=== PATIENT | female | born 1975 | race Caucasian/White ===

== ENCOUNTER 2016-08-15 11:23 | Outpatient (CLI) | payer OTHER | END 2016-08-15 11:24 | disposition home or self-care (01) | DX: E03.9 Hypothyroidism, unspecified (principal); D64.9 Anemia, unspecified ==

== ENCOUNTER 2017-04-21 20:35 | Outpatient (CLI) | payer OTHER ==
[2017-04-21 21:03] LABS: BASOPHILS % (AUTO) 0.5 %; EOSINOPHILS # (AUTO) 0.1 10^3/uL (0.0-0.7); HGB - HEMOGLOBIN 12.3 g/dL (12.0-16.0); LYMPHOCYTES # (AUTO) 2.2 10^3/uL (1.5-3.5); LYMPHOCYTES % (AUTO) 35.8 %; MEAN CORPUSCULAR HEMOGLOBIN 29.5 pg (27.0-31.0); MEAN CORPUSCULAR HGB CONC 33.1 g/dL (32.0-36.0); MEAN CORPUSCULAR VOLUME 89.3 fL (81.0-99.0); MEAN PLATELET VOLUME 9.6 fL (7.9-10.8); MONOCYTES # (AUTO) 0.7 10^3/uL (0.0-1.0); MONOCYTES % (AUTO) 10.5 %; NEUTROPHILS # (AUTO) 3.3 10^3/uL (1.5-6.6); NEUTROPHILS % (AUTO) 52.2 %; PLT - PLATELET COUNT 174 10^3/uL (130-450); RED BLOOD COUNT 4.15 10^6/uL (4.20-5.40); RED CELL DISTRIBUTION WIDTH 12.9 % (12.0-15.0); WHITE BLOOD COUNT 6.3 x10^3/uL (4.8-10.8)
[2017-04-21 21:11] LABS: CREATININE 0.6 mg/dL (0.4-1.0)
[2017-04-21 21:18] LABS: BILIRUBIN,URINE NEGATIVE (NEGATIVE); GLUCOSE, URINE (UA) NEGATIVE (NEGATIVE); KETONES,URINE (UA) NEGATIVE (NEGATIVE); LEUKOCYTE ESTERASE, URINE NEGATIVE (NEGATIVE); NITRITE,URINE NEGATIVE (NEGATIVE); OCCULT BLOOD,URINE NEGATIVE (NEGATIVE); PROTEIN,URINE NEGATIVE (NEGATIVE); UROBILINOGEN,URINE 0.2 (NORMAL) E.U./dL (NORMAL)
[2017-04-21 21:20] LABS: PLATELET ESTIMATE, MANUAL NORMAL (130-450,000) (NORMAL); PLATELET MORPHOLOGY RARE GIANT PLATELETS (NORMAL); RBC MORPHOLOGY (MULTIPLE) NORMAL APPEARANCE (NORMAL)
[2017-04-21 21:37] LABS: CLARITY,URINE CLEAR (CLEAR)
== END 2017-04-21 20:36 | disposition home or self-care (01) ==
LOC: LAB 20:35
PROVIDERS: ATTEND Physician Assistant
DX: R10.9 Unspecified abdominal pain (principal)
CPT/HCPCS: 80048; 81001; 81003; 82150; 83690; 85025; 87086

== ENCOUNTER 2017-04-23 10:44 | Outpatient (CLI) | payer OTHER ==
[2017-04-23] MEDS ORDERED: IOPAMIDOL-300 50 ML VIAL ONE (11:03)
[2017-04-23] MEDS ORDERED: IOPAMIDOL-300 100 ML VIAL ONE (11:03)
[2017-04-23] MEDS ORDERED: IOPAMIDOL-300 100 ML VIAL IVP ONE (12:22)
[2017-04-23] MEDS ORDERED: IOPAMIDOL-300 50 ML VIAL PO ONE (12:22)
--- NOTE | 2017-04-23 19:32 | CT Report ---
DATE OF SERVICE: 04/23/2017 CT ABDOMEN AND PELVIS WITH CONTRAST: 04/23/2017 CLINICAL INDICATION: Left lower quadrant pain. COMPARISON: Previous abdomen and pelvis CT 01/02/2015, previous chest CT 01/10/2015. Axial CT images of the abdomen and pelvis were obtained with 100 mL Isovue 300 intravenously as well as oral contrast. In accordance with CT protocol optimization, one or more of the following dose reduction techniques were utilized for this exam: Automated exposure control, adjustment of mA and/or KV based on patient size, or use of iterative reconstructive technique. Limited evaluation of the lung bases demonstrates a stable 3 mm nodule in the posterior right lower lobe. ABDOMEN: The liver, spleen, pancreas, kidneys and adrenal glands are unremarkable. The gallbladder is not dilated. No bowel dilatation, free gas or free fluid is present. No abdominal adenopathy is seen. PELVIS: The pelvic organs appear unremarkable. No pelvic adenopathy or free fluid is present. The appendix is seen in the right lower quadrant, and is normal in caliber. Osseous structures demonstrate mild degenerative changes. IMPRESSION: Normal CT of the abdomen and pelvis with contrast. No evident etiology for patient's left lower quadrant pain. TD: 04/23/2017 20:32
== END 2017-04-23 10:45 | disposition home or self-care (01) ==
LOC: DI 10:44
PROVIDERS: ATTEND Physician Assistant
DX: R10.32 Left lower quadrant pain (principal)
CPT/HCPCS: 74177; Q9967

== ENCOUNTER 2017-06-27 09:29 | Emergency (ER) | payer OTHER ==
[2017-06-27] MEDS ORDERED: ONDANSETRON 4 MG/2 ML VIAL IVP STA (11:43)
[2017-06-27] MEDS ORDERED: MORPHINE 2 MG/ML CARPUJECT IVP STA ×2 (11:43→13:14)
--- NOTE | 2017-06-27 11:47 | ED Physician Documentation ---
History of Present Illness - Stated complaint Stated Complaint: AD PX/CONSTIPATION/POST OP 2 DAYS - Chief complaint Chief Complaint: General - Additonal information Additional information: hx from pt 41 female 2 days s/p rectocele surgery at [facility] on dulcolax but severe rectal pain and now BM no fever s/p hyst Review of Systems Constitutional: denies: Fever Cardiac: denies: Chest pain / pressure Respiratory: denies: Dyspnea GI: reports: Other (rectal paon). 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 - Present Medications Home Medications: Ambulatory Orders Medication Instructions Recorded Confirmed Thyroid,Pork [[place] Thyroid] 105 mcg PO DAILY 01/02/15 01/10/15 - Allergies Allergies/Adverse Reactions: Allergies Allergy/AdvReac Type Severity Reaction Status Date / Time codeine AdvReac Unknown Verified 01/02/15 11:40 - Social History Does the pt smoke?: No Smoking Status: Never smoker Does the pt drink ETOH?: No Does the pt have substance abuse?: No - Immunizations Immunizations are current?: Yes PD ED PE NORMAL - Vitals Vital signs reviewed: Yes - Neck Neck: Supple, no meningeal sign - Cardiac Cardiac: RRR - Respiratory Respiratory: No respiratory distress, Clear bilaterally - Abdomen Abdomen: Soft, Non tender - Rectal Rectal: Other (STS anterior rectal vault is very tender) - Derm Derm: Normal color - Neuro Neuro: Alert and oriented X 3 Results - Vitals Vitals: Vital Signs - 24 hr 06/27/17 06/27/17 06/27/17 10:17 10:51 13:22 Temperature 36.9 C Heart Rate 67 69 77 Respiratory 17 16 18 Rate Blood Pressure 110/77 94/61 91/59 L O2 Saturation 100 100 100 06/27/17 06/27/17 06/27/17 13:23 14:39 16:37 Temperature 37.2 C Heart Rate 79 84 72 Respiratory 16 17 17 Rate Blood Pressure 105/66 94/68 96/60 O2 Saturation 100 100 97 06/27/17 19:24 Temperature 36.7 C Heart Rate 71 Respiratory 12 Rate Blood Pressure 102/58 L O2 Saturation 99 Oxygen O2 Source Room air - Labs Labs: Laboratory Tests 06/27/17 06/27/17 14:21 14:21 WBC 9.2 RBC 3.85 L Hgb 11.7 L Hct 34.6 L MCV 89.8 MCH 30.4 MCHC 33.8 RDW 14.1 Plt Count 158 MPV 8.8 Neut # 6.0 Lymph # 2.4 [place] # 0.6 Eos # 0.1 Baso # 0.1 Absolute Nucleated RBC 0.01 Nucleated RBC % 0.1 Sodium 134 L Potassium 3.8 Chloride 104 Carbon Dioxide 23 Anion Gap 7.0 BUN 11 Creatinine 0.8 Estimated GFR (MDRD) 79 L Glucose 86 Calcium 8.3 L - Rads (name of study) CT AP with IV con Radiology: See rad report (5 X 8 cm fluid and gas collection separate from rectum could be abscess hematoma or seroma, consider surgical consult or fluoro or IR, restained stool) PD MEDICAL DECISION MAKING - ED course ED course: long ER stay -CT ordered at 1144 and not done and read until 1550 pt not getting relief with morphine will try dilaudid ofirmev toradol - good relief CT shows a 5 X 8 cm fluid and gals collection between rectal and vaginal vaults - ddx abscess seroma hematoma as pt has no fever will hold on ab until collection can be drained and cultured spoke to Dr Lyn surgeon division operations manager for Dr Rolanda Mares pts surgeon and he rec pt be transferred to [facility] for drainage pt is [place] so will call [place] to coordinate - [place] rep states pt is [employer] P[employer] and is covered to go to [place] spoke to charge nurse at [facility] who took report and accepts pt and states accepting doc is Dr Jeff Delgado and I later spoke to Dr Delgado as well pt and family updated COBRA forms complete Departure - Departure Disposition: 02 Transfer Acute Care Hosp Clinical Impression: Post-operative complication Qualifiers: Surgical complication system/body Area: genitourinary Surgical complication type: unspecified Procedure type: genitourinary Qualified Code(s): N99.89 - Other postprocedural complications and disorders of genitourinary system Condition: Good Discharge Date/Time: 06/27/17 19:24
[2017-06-27 14:25] LABS: BASOPHILS # (AUTO) 0.1 10^3/uL (0.0-0.1); BASOPHILS % (AUTO) 0.7 %; EOSINOPHILS # (AUTO) 0.1 10^3/uL (0.0-0.7); EOSINOPHILS % (AUTO) 0.6 %; HGB - HEMOGLOBIN 11.7 g/dL (12.0-16.0); LYMPHOCYTES # (AUTO) 2.4 10^3/uL (1.5-3.5); MEAN CORPUSCULAR HEMOGLOBIN 30.4 pg (27.0-31.0); MEAN CORPUSCULAR HGB CONC 33.8 g/dL (32.0-36.0); MEAN CORPUSCULAR VOLUME 89.8 fL (81.0-99.0); MEAN PLATELET VOLUME 8.8 fL (7.9-10.8); MONOCYTES # (AUTO) 0.6 10^3/uL (0.0-1.0); MONOCYTES % (AUTO) 6.9 %; NEUTROPHILS % (AUTO) 65.8 %; PLT - PLATELET COUNT 158 10^3/uL (130-450); RED BLOOD COUNT 3.85 10^6/uL (4.20-5.40); RED CELL DISTRIBUTION WIDTH 14.1 % (12.0-15.0); WHITE BLOOD COUNT 9.2 x10^3/uL (4.8-10.8)
[2017-06-27 14:33] LABS: CALCIUM 8.3 mg/dL (8.5-10.3); CREATININE 0.8 mg/dL (0.4-1.0)
[2017-06-27] MEDS ORDERED: IOPAMIDOL-300 100 ML VIAL ONE (14:42)
[2017-06-27] MEDS ORDERED: IOPAMIDOL-300 100 ML VIAL IVP ONE (15:15)
[2017-06-27] MEDS ORDERED: HYDROmorphone 1 MG/ML SYRINGE IVP STA ×2 (15:50→18:53)
[2017-06-27] MEDS ORDERED: KETOROLAC 30 MG/ML VIAL IVP STA (15:50)
[2017-06-27] MEDS ORDERED: ACETAMINOPHEN 1,000 MG/100 ML 100 ML IV STA (15:50)
--- NOTE | 2017-06-27 15:52 | CT Preliminary Report ---
Exam: CT ABDOMEN/PELVIS W/ IMPRESSION: 1. Fluid and gas collection in the cul-de-sac appears separate from the rectum, though difficult to d etermine if completely separate from the vagina. This may represent hematoma, abscess or postoperativ e seroma. Surgical consultation may be useful. Fluoroscopic exam could be considered to assess for co mmunication with either the rectum or vagina. 2. Findings suggestive of constipation. Findings discussed with Dr. Crowley by Dr. Mcneil on 06/27/2017 at 3:40 PM. [facility] SITE ID: [id number]
--- NOTE | 2017-06-27 16:09 | CT Report ---
EXAM: CT ABDOMEN AND PELVIS EXAM DATE: 06/27/2017 03:01 PM. CLINICAL HISTORY: Status post rectocele surgery, no bowel movement, STS rectal vault digital rectal e xam. COMPARISONS: CT of the abdomen and pelvis with contrast 01/02/2015. TECHNIQUE: Routine helical CT imaging was performed through the abdomen and pelvis. IV contrast: Isov ue-300, 100 mL. Enteric contrast: No. Reconstructions: Coronal and sagittal. In accordance with CT protocol optimization, one or more of the following dose reduction techniques w ere utilized for this exam: automated exposure control, adjustment of mA and/or KV based on patient s ize, or use of iterative reconstructive technique. FINDINGS: Lung Bases: Unremarkable. Liver: Normal. No masses. Gallbladder/Bile Ducts: Moderate gallbladder distention without calculi or evidence of acute cholecys titis. The extrahepatic bile duct is normal with minimal intrahepatic biliary ductal prominence centr ally. Appearance is similar to the 2014 exam. Spleen: Normal. Pancreas: Normal. Adrenal Glands: Normal. Kidneys: Normal. No masses or hydronephrosis. Peritoneal Cavity/Bowel: -Patient is post recent rectocele surgery with evidence of recent surgery in the low pelvis. Anterior to the low rectum in the cul-de-sac there is a lobulated gas and fluid collection measuring 52 mm CC by 34 mm transverse by 17 mm AP (369 and 6/36). No definite evidence of communication with the rect um, though no clear fat plane between this region and the vagina, though this would be better evaluat ed with a fluoroscopic exam after the administration of contrast. Mild edema and soft tissue strandin g about the rectum is nonspecific in the setting of recent surgery. The remainder of the colon is unremarkable with the exception of above average stool burden suggestin g constipation. The stomach and small bowel are within normal limits for technique. Normal appendix. No abnormally enlarged lymph nodes. Pelvic Organs: Post recent rectal surgery as above. The uterus is absent. The urinary bladder is unre markable. No definite communication of the described gas and fluid collection with the vaginal canal. Mild stranding and free fluid in the low pelvis likely related to recent surgery as above. No adnexa l mass. Vasculature: No aneurysms or other significant abnormality. Bones: No significant abnormality. Other: None. IMPRESSION: 1. Fluid and gas collection in the cul-de-sac appears separate from the rectum, though difficult to d etermine if completely separate from the vagina. This may represent a hematoma, abscess or postoperat willie seroma. Surgical consultation may be useful. Fluoroscopic exam could be considered to assess for communication with either the rectum or vagina. 2. Findings suggestive of constipation. Findings discussed with Dr. Han by Dr. Mcneil on 06/27/2017 at 3:40 PM. [facility] Referring Provider Line: [phone] SITE ID: [id number]
[2017-06-27 19:25] VITALS: BP 102/58
== END 2017-06-27 19:24 | disposition short-term general hospital (02) ==
LOC: ED 09:29
DX: N99.89 Other postprocedural complications and disorders of genitourinary system (principal); K62.89 Other specified diseases of anus and rectum; E03.9 Hypothyroidism, unspecified
CPT/HCPCS: 36415; 74177; 80048; 85025; 96365; 96375; 96376; 99284; J0131; J1170; Q9967

== ENCOUNTER 2017-06-27 19:31 | Outpatient (CLI) | payer OTHER | END 2017-06-27 19:32 | disposition short-term general hospital (02) | LOC: EMS 19:31 | PROVIDERS: ATTEND Surgery | DX: T81.9XXA Unspecified complication of procedure, initial encounter (principal) | CPT/HCPCS: A0425; A0426 ==

== ENCOUNTER 2017-07-09 10:52 | Outpatient (CLI) | payer OTHER ==
[2017-07-09 18:03] LABS: THYROID STIMULATING HORMONE < 0.08 uIU/mL (0.34-5.60)
[2017-07-09 18:07] LABS: FREE T4 (FREE THYROXINE) 0.97 ng/dL (0.58-1.64)
[2017-07-09 18:11] LABS: TOTAL T3 1.78 ng/mL (0.87-1.78)
== END 2017-07-09 10:53 | disposition home or self-care (01) ==
LOC: LAB.F 10:52
PROVIDERS: ATTEND Physician Assistant
DX: E03.9 Hypothyroidism, unspecified (principal)
CPT/HCPCS: 36415; 84439; 84443; 84480; 84481; 84482

== ENCOUNTER 2017-10-05 15:06 | Outpatient (CLI) | payer OTHER ==
[2017-10-05 17:41] LABS: BASOPHILS % (AUTO) 0.5 %; EOSINOPHILS % (AUTO) 0.5 %; HGB - HEMOGLOBIN 13.8 g/dL (12.0-16.0); LYMPHOCYTES # (AUTO) 1.6 10^3/uL (1.5-3.5); MEAN CORPUSCULAR HEMOGLOBIN 30.3 pg (27.0-31.0); MEAN CORPUSCULAR HGB CONC 33.6 g/dL (32.0-36.0); MEAN CORPUSCULAR VOLUME 90.3 fL (81.0-99.0); MEAN PLATELET VOLUME 10.3 fL (7.9-10.8); MONOCYTES # (AUTO) 0.5 10^3/uL (0.0-1.0); MONOCYTES % (AUTO) 7.4 %; NEUTROPHILS % (AUTO) 69.6 %; PLT - PLATELET COUNT 191 10^3/uL (130-450); RED BLOOD COUNT 4.54 10^6/uL (4.20-5.40); RED CELL DISTRIBUTION WIDTH 13.5 % (12.0-15.0); WHITE BLOOD COUNT 7.2 x10^3/uL (4.8-10.8)
[2017-10-05 17:45] LABS: BILIRUBIN,URINE NEGATIVE (NEGATIVE); GLUCOSE, URINE (UA) NEGATIVE (NEGATIVE); KETONES,URINE (UA) 40 mg/dL (NEGATIVE); LEUKOCYTE ESTERASE, URINE NEGATIVE (NEGATIVE); NITRITE,URINE NEGATIVE (NEGATIVE); OCCULT BLOOD,URINE NEGATIVE (NEGATIVE); PH,URINE 7.5 PH (5.0-7.5); PROTEIN,URINE NEGATIVE (NEGATIVE); UROBILINOGEN,URINE 0.2 (NORMAL) E.U./dL (NORMAL)
[2017-10-05 17:47] LABS: CLARITY,URINE CLEAR (CLEAR)
[2017-10-05 17:48] LABS: ALBUMIN 4.2 g/dL (3.2-5.5); ALBUMIN/GLOBULIN RATIO 1.3 (1.0-2.2); BILIRUBIN,TOTAL 0.8 mg/dL (0.2-1.0); CALCIUM 9.6 mg/dL (8.5-10.3); CREATININE 0.7 mg/dL (0.4-1.0); TOTAL PROTEIN 7.5 g/dL (6.7-8.2)
== END 2017-10-05 15:07 | disposition home or self-care (01) ==
LOC: LAB.F 15:06
PROVIDERS: ATTEND Physician Assistant
DX: M54.5 Low back pain (principal)
CPT/HCPCS: 36415; 80053; 81001; 81003; 85025; 87086

== ENCOUNTER 2018-05-28 14:41 | Outpatient (CLI) | payer OTHER | END 2018-05-28 14:42 | disposition EMS.NT | LOC: EMS 14:41 | PROVIDERS: ATTEND Surgery | DX: R55 Syncope and collapse (principal) ==

== ENCOUNTER 2018-06-05 12:50 | Outpatient (CLI) | payer OTHER | END 2018-06-05 12:51 | disposition short-term general hospital (02) | LOC: EMS 12:50 | PROVIDERS: ATTEND Surgery | DX: R07.9 Chest pain, unspecified (principal) | CPT/HCPCS: A0425; A0427 ==

== ENCOUNTER 2018-11-09 11:11 | Outpatient (CLI) | payer OTHER ==
--- NOTE | 2018-11-09 15:37 | Mammography Report ---
Reason: SCREENING MAMMO Procedure Date: 11/09/2018 Accession Number: [id number] / [id number] Procedure: MGS - Screening Mammo Dig Bilat CPT Code: FULL RESULT: EXAM: Screening Mammo Dig Bilat DATE: 11/09/2018 11:33 AM CLINICAL HISTORY: Screening exam. Baseline examination. TECHNIQUE: (B) - Bilateral CC and MLO views were obtained. COMPARISON: None PARENCHYMAL PATTERN: (D) - The breast(s) demonstrate(s) heterogeneously dense fibroglandular parenchyma. FINDINGS: There are no suspicious masses, calcifications, or areas of distortion. IMPRESSION: Negative examination. BI-RADS category 1. RECOMMENDATION: (ANNUAL) - Recommend routine annual screening mammography. BI-RADS CATEGORY: (1) - Negative. STANDARD QUALIFYING STATEMENTS: 1. This examination was reviewed with the aid of Computer-Aided Detection (CAD). 2. A negative or benign imaging report should not preclude biopsy if clinically suspicious findings are present. 3. Dense breasts may obscure an underlying neoplasm. 4. This examination was reviewed without the aid of 3D breast imaging (tomosynthesis).
== END 2018-11-09 11:12 | disposition home or self-care (01) ==
LOC: DI.S 11:11
DX: Z12.31 Encounter for screening mammogram for malignant neoplasm of breast (principal)
CPT/HCPCS: 77067

== ENCOUNTER 2018-11-22 15:16 | Outpatient (CLI) | payer OTHER | END 2018-11-22 15:17 | disposition EMS.NT | LOC: EMS 15:16 | PROVIDERS: ATTEND Surgery | DX: R42 Dizziness and giddiness (principal); R00.0 Tachycardia, unspecified; R07.9 Chest pain, unspecified ==

== ENCOUNTER 2018-11-22 16:26 | Emergency (ER) | payer OTHER ==
[2018-11-22 17:12] LABS: BILIRUBIN,URINE NEGATIVE (NEGATIVE); GLUCOSE, URINE (UA) NEGATIVE (NEGATIVE); KETONES,URINE (UA) NEGATIVE (NEGATIVE); LEUKOCYTE ESTERASE, URINE NEGATIVE (NEGATIVE); NITRITE,URINE NEGATIVE (NEGATIVE); OCCULT BLOOD,URINE NEGATIVE (NEGATIVE); PH,URINE 6.5 PH (5.0-7.5); PROTEIN,URINE NEGATIVE (NEGATIVE); UROBILINOGEN,URINE 0.2 (NORMAL) E.U./dL (NORMAL)
[2018-11-22 17:13] LABS: CLARITY,URINE CLEAR (CLEAR)
--- NOTE | 2018-11-22 17:18 | ED Physician Documentation ---
History of Present Illness - Stated complaint Stated Complaint: CP - Chief complaint Chief Complaint: Cardiac - History obtained from History obtained from: Patient - History of Present Illness Timing: Prior to arrival - Additonal information Additional information: Patient is a 42-year-old female presenting with chest discomfort, lightheadedness, and anxiety that occurred just prior to arrival. Patient reports that she has had chest pain for the past several months and has had repeat evaluations including at [facility] and been told she has anxiety and pa shelli as opposed to an underlying cardiac issue. Patient feels that she experiences hyperventilation, nausea without vomiting during these episodes. Patient has not exhibited her experience syncope. No other abdominal pain, urinary change, stool change, hormone use, prolonged travel, leg swelling or discomfort. Patient took Valium at home with near resolution of all symptoms. No other improving or worsening factors noted. Review of Systems Constitutional: denies: Fever Cardiac: reports: Chest pain / pressure. denies: Pedal edema Respiratory: reports: Dyspnea. denies: Cough GI: reports: Nausea. denies: Abdominal Pain, Vomiting, Diarrhea : denies: Dysuria Neurologic: reports: Near syncope. 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 - Present Medications Home Medications: Ambulatory Orders Medication Instructions Recorded Confirmed Thyroid,Pork [[place] Thyroid] 105 mcg PO DAILY 01/02/15 01/10/15 - Allergies Allergies/Adverse Reactions: Allergies Allergy/AdvReac Type Severity Reaction Status Date / Time codeine AdvReac Unknown Verified 11/22/18 16:40 - Social History Does the pt smoke?: No Smoking Status: Never smoker Does the pt drink ETOH?: No Does the pt have substance abuse?: No - Immunizations Immunizations are current?: Yes PD ED PE NORMAL - Vitals Vital signs reviewed: Yes - General General: Alert and oriented X 3, No acute distress, Well developed/nourished - HEENT HEENT: Atraumatic, Moist mucous membranes - Neck Neck: Supple, no meningeal sign - Cardiac Cardiac: RRR, No murmur - Respiratory Respiratory: No respiratory distress, Clear bilaterally - Abdomen Abdomen: Soft, Non tender, Non distended - Derm Derm: Normal color, Warm and dry, No rash - Extremities Extremities: No deformity, No tenderness to palpate, No edema - Neuro Neuro: Alert and oriented X 3, No motor deficit, No sensory deficit - Psych Psych: Normal mood, Normal affect Results - Vitals Vitals: Vital Signs - 24 hr 11/22/18 16:34 Temperature 36.7 C Heart Rate 58 L Respiratory 18 Rate Blood Pressure 108/68 O2 Saturation 100 Oxygen O2 Source Room air - Labs Labs: Laboratory Tests 11/22/18 11/22/18 11/22/18 16:11 16:47 17:42 WBC 6.4 RBC 4.02 L Hgb 12.5 Hct 37.7 MCV 93.8 MCH 31.1 H MCHC 33.2 RDW 13.5 Plt Count 216 MPV 11.2 H Neut # (Auto) 4.2 Lymph # (Auto) 1.5 [place] # (Auto) 0.6 Eos # (Auto) 0.1 Baso # (Auto) 0.1 Absolute Nucleated RBC 0.00 Nucleated RBC % 0.0 Sodium Potassium Chloride Carbon Dioxide Anion Gap BUN Creatinine Estimated GFR (MDRD) Glucose Calcium Total Bilirubin AST ALT Alkaline Phosphatase Troponin I High Sens Total Protein Albumin Globulin Albumin/Globulin Ratio Lipase TSH Urine Color YELLOW Urine Clarity CLEAR Urine pH 6.5 Ur Specific [place] >=1.030 H <=1.005 Urine Protein NEGATIVE Urine Glucose (UA) NEGATIVE Urine Ketones NEGATIVE Urine Occult Blood NEGATIVE Urine Nitrite NEGATIVE Urine Bilirubin NEGATIVE Urine Urobilinogen 0.2 (NORMAL) Ur Leukocyte Esterase NEGATIVE Ur Microscopic Review NOT INDICATED Urine Culture Comments NOT INDICATED Urine HCG, Qual NEGATIVE 11/22/18 11/22/18 11/22/18 17:42 17:42 17:42 WBC RBC Hgb Hct MCV MCH MCHC RDW Plt Count MPV Neut # (Auto) Lymph # (Auto) [place] # (Auto) Eos # (Auto) Baso # (Auto) Absolute Nucleated RBC Nucleated RBC % Sodium 142 Potassium 3.8 Chloride 108 Carbon Dioxide 24 Anion Gap 10.0 BUN 9 Creatinine 0.8 Estimated GFR (MDRD) 78 L Glucose 99 Calcium 9.4 Total Bilirubin 0.5 AST 19 ALT 17 Alkaline Phosphatase 32 L Troponin I High Sens < 2.3 L Total Protein 6.9 Albumin 4.2 Globulin 2.7 Albumin/Globulin Ratio 1.6 Lipase 46 TSH < 0.08 L Urine Color Urine Clarity Urine pH Ur Specific [place] Urine Protein Urine Glucose (UA) Urine Ketones Urine Occult Blood Urine Nitrite Urine Bilirubin Urine Urobilinogen Ur Leukocyte Esterase Ur Microscopic Review Urine Culture Comments Urine HCG, Qual PD MEDICAL DECISION MAKING - ED course Complexity details: reviewed results, re-evaluated patient, considered differential, d/w patient, d/w family ED course: Patient presenting with likely panic and anxiety attack which she has been told about before during her previous evaluations and negative work-up for chest complaints. Do not have high suspicion for PE, pneumonia, ACS, HI, unstable angina, dissection, aneurysm, but considered. EKG and troponin within normal limits and did not reflect ischemia. Chest x-ray rather unremarkable. Screening lab work otherwise and concerning. Do not feel patient require medications at this time, as she is otherwise asymptomatic and this is related to anxiety. Discussed establishing primary care physician, anxiety mediation techniques, return precautions and follow-up. Patient voiced understanding and is comfortable with discharge plan. Departure - Departure Disposition: 01 Home, Self Care Clinical Impression: Anxiety Condition: Good Instructions: ED Panic Attack Follow-Up: your,doctor [Other] - Within 3 Days Comments: Recommend follow-up with primary care physician in next 2 to 3 days to discuss likely panic and anxiety component of your chest discomfort. Return to ED sooner if experience worsening symptoms or have other concerns.
[2018-11-22 17:52] LABS: BASOPHILS # (AUTO) 0.1 10^3/uL (0.0-0.1); BASOPHILS % (AUTO) 0.9 %; EOSINOPHILS # (AUTO) 0.1 10^3/uL (0.0-0.7); EOSINOPHILS % (AUTO) 1.3 %; HGB - HEMOGLOBIN 12.5 g/dL (12.0-16.0); LYMPHOCYTES # (AUTO) 1.5 10^3/uL (1.5-3.5); LYMPHOCYTES % (AUTO) 22.8 %; MEAN CORPUSCULAR HEMOGLOBIN 31.1 pg (27.0-31.0); MEAN CORPUSCULAR HGB CONC 33.2 g/dL (32.0-36.0); MEAN CORPUSCULAR VOLUME 93.8 fL (81.0-99.0); MEAN PLATELET VOLUME 11.2 fL (7.9-10.8); MONOCYTES # (AUTO) 0.6 10^3/uL (0.0-1.0); MONOCYTES % (AUTO) 8.6 %; NEUTROPHILS # (AUTO) 4.2 10^3/uL (1.5-6.6); NEUTROPHILS % (AUTO) 65.9 %; PLT - PLATELET COUNT 216 10^3/uL (130-450); RED BLOOD COUNT 4.02 10^6/uL (4.20-5.40); RED CELL DISTRIBUTION WIDTH 13.5 % (12.0-15.0); WHITE BLOOD COUNT 6.4 x10^3/uL (4.8-10.8)
[2018-11-22 17:52] LABS: HCG UR QUAL NEGATIVE
[2018-11-22 18:00] LABS: ALBUMIN 4.2 g/dL (3.2-5.5); ALBUMIN/GLOBULIN RATIO 1.6 (1.0-2.2); BILIRUBIN,TOTAL 0.5 mg/dL (0.2-1.0); CALCIUM 9.4 mg/dL (8.5-10.3); CREATININE 0.8 mg/dL (0.4-1.0); TOTAL PROTEIN 6.9 g/dL (6.7-8.2)
--- NOTE | 2018-11-22 18:30 | XRAY Report ---
Reason: cough Procedure Date: 11/22/2018 Accession Number: [id number] / [id number] Procedure: XR - Chest 2 View X-Ray CPT Code: 31205 FULL RESULT: EXAM: CHEST RADIOGRAPHY EXAM DATE: 11/22/2018 06:06 PM. CLINICAL HISTORY: Cough. COMPARISON: CHEST 2 VIEW PA/LAT 01/10/2015 2:32 PM. TECHNIQUE: 2 views. FINDINGS: Lungs/Pleura: No dense consolidation. No large effusion or pneumothorax. No pulmonary edema. Mediastinum: Heart and mediastinal contours are unremarkable. Other: None. IMPRESSION: No acute radiographic pulmonary abnormalities. [facility]
[2018-11-22 19:00] VITALS: BP 90/59
== END 2018-11-22 19:07 | disposition home or self-care (01) ==
LOC: ED 16:26
DX: F41.9 Anxiety disorder, unspecified (principal); R07.89 Other chest pain
CPT/HCPCS: 36415; 71046; 80053; 81001; 81003; 81025; 83690; 84443; 84484; 85025; 87086; 93005; 99283; 99284

== ENCOUNTER 2019-05-17 14:31 | Outpatient (CLI) | payer OTHER ==
--- NOTE | 2019-05-18 06:16 | XRAY Report ---
Reason: R05 COUGHING, R07.9 CHEST PAIN, R06.89 Procedure Date: 05/17/2019 Accession Number: [id number] / [id number] Procedure: XRS - Chest 2 View X-Ray CPT Code: 70383 Final Report FULL RESULT: EXAM: CHEST RADIOGRAPHY EXAM DATE: 05/17/2019 02:43 PM. CLINICAL HISTORY: Coughing and chest pain COMPARISON: CHEST 2 VIEW 11/22/2018 5:46 PM. TECHNIQUE: 2 views. FINDINGS: The mediastinal and cardiac silhouettes are normal. The lungs are clear. No pleural effusion or pneumothorax is seen. There is a thoracic levoscoliosis. Mild degenerative changes are seen in the thoracic spine. IMPRESSION: Clear lungs. [facility]
== END 2019-05-17 14:32 | disposition home or self-care (01) ==
LOC: DI.S 14:31
PROVIDERS: ATTEND Naturopath
DX: R05 Cough (principal); R07.9 Chest pain, unspecified; R06.89 Other abnormalities of breathing
CPT/HCPCS: 71046

== ENCOUNTER 2020-04-23 12:59 | Emergency (ER) | payer OTHER ==
--- NOTE | 2020-04-23 15:37 | ED Physician Documentation ---
PD HPI HEAD INJURY - Stated complaint Stated Complaint: HEAD/NECK PX - Chief complaint Chief Complaint: Neuro - History obtained from History obtained from: Patient - History of Present Illness Mechanism of head injury: Blow Where head injury occurred: Work Timing - onset: How many days ago (6) Location of injury: Top Quality of pain: Pain, Throbbing Associated symptoms: Nausea / vomiting, Neck pain, Other (difficulty concentrating, dizziness episodic, nausea resolved, headache on the vertex.). No: LOC, AMS, Amnesia Symptoms improve with: Rest, Meds (taking a lot of tylenol.) Symptoms worsen with: Palpation, Movement Similar symptoms before: Has not had sx before Recently seen: Clinic - Additional information Additional information: 44-year-old female was at work 6 days ago when a pole used to bring the ladder down from a truck fell onto the top of her head. It fell directly across the top of her head she was not knocked unconscious she did have significant pain associated with it and she is now developed pain in her neck and pain in the top of her head. She had some transient nausea she still having some difficulty c oncentrating and she has a headache this worse today than it was when it first happened. She has some episodic dizziness. She has a stiff neck and is but is able to move her neck she denies any numbness or tingling. Review of Systems Constitutional: denies: Fever Eyes: denies: Decreased vision Ears: denies: Ear pain Nose: denies: Congestion Throat: denies: Sore throat Cardiac: denies: Chest pain / pressure, Palpitations Respiratory: denies: Dyspnea, Cough GI: reports: Nausea (resolved). denies: Abdominal Pain, Vomiting, Constipation, Diarrhea : denies: Dysuria, Frequency Skin: denies: Rash, Lesions Musculoskeletal: reports: Neck pain. denies: Back pain, Extremity pain Neurologic: reports: Headache, Head injury. 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 - Present Medications Home Medications: Ambulatory Orders Medication Instructions Recorded Confirmed Thyroid,Pork [[place] Thyroid] 105 mcg PO DAILY 01/02/15 01/10/15 Cyclobenzaprine [Flexeril] 10 mg PO TID PRN #20 tablet 04/23/20 Hydrocodone/Acetaminophen [[place] 1 - 2 each PO Q6HR PRN #14 tablet 04/23/20 5-325 Tablet] - Allergies Allergies/Adverse Reactions: Allergies Allergy/AdvReac Type Severity Reaction Status Date / Time codeine AdvReac Unknown Verified 04/23/20 13:41 - Social History Does the pt smoke?: No Smoking Status: Never smoker Does the pt drink ETOH?: No Does the pt have substance abuse?: No - Immunizations Immunizations are current?: Yes - POLST Patient has POLST: No PD ED PE NORMAL - Vitals Vital signs reviewed: Yes - General General: Alert and oriented X 3, Well developed/nourished, Other (telephonic rn tone and flat affect consistent with pain ) - HEENT HEENT: PERRL, EOMI, Ears normal, Other (tenderness to the top of the head without mass, crepitance or bogginess. ) - Neck Neck: Supple, no meningeal sign, Other (mild midline bony tenderness at C3 and mild pain with ROM that is not restricted. 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 No CT evidence of acute intracranial pathology. Incidentally noted of the CSF densities area involving left high frontal lobe white matter without surrounding edema or mass-effect. Findings likely represents a congenital process, comparison with prior studies can be helpful if avai), EMP read indepedently, See rad report CT cervical spine Radiology: Prelim report reviewed (Impression: No acute trauma found. C5-6 moderately severe degenerative disc disease with moderate spinal stenosis associated with posterior projecting osteophytes, chronic in appearance.), EMP read indepedently, See rad report PD MEDICAL DECISION MAKING - ED course Complexity details: reviewed old records, reviewed results, re-evaluated patient, considered differential, d/w patient ED course: 44 y/o female with concussion and headache has negative imaging studies. She is given instructions for concussion. Departure - Departure Disposition: 01 Home, Self Care Clinical Impression: Concussion Qualifiers: Encounter type: initial encounter Loss of consciousness presence/duration: without LOC Qualified Code(s): S06.0X0A - Concussion without loss of consciousness, initial encounter Cervical strain, acute Qualifiers: Encounter type: initial encounter Qualified Code(s): S16.1XXA - Strain of muscle, fascia and tendon at neck level, initial encounter Condition: Stable Instructions: ED Concussion, ED Sprain Strain Neck Follow-Up: Yusra Grace ND [Primary Care Provider] - Prescriptions: Hydrocodone/Acetaminophen [[place] 5-325 Tablet] 1 - 2 each PO Q6HR PRN #14 tablet PRN Reason: Pain Cyclobenzaprine [Flexeril] 10 mg PO TID PRN #20 tablet PRN Reason: Spasms
--- NOTE | 2020-04-23 16:11 | CT Report ---
PROCEDURE: HEAD WO INDICATIONS: concussion persistent headache TECHNIQUE: Noncontrast 4.5 mm thick angled axial sections acquired from the foramen magnum to the vertex. For r adiation dose reduction, the following was used: automated exposure control, adjustment of mA and/or kV according to patient size. COMPARISON: None. FINDINGS: Image quality: Excellent. CSF spaces: Basal cisterns are patent. No extra-axial fluid collections. Ventricles are normal in size and shape. Brain: No midline shift. No intracranial masses or hemorrhage. Focal lobulated area of CSF density involving left high frontal lobe subcortical white matter without surrounding edema or mass effect. G ray-white matter interface is normal. Skull and face: Calvarium and visualized facial bones are intact, without suspicious lesions. Sinuses: Visualized sinuses and mastoids are clear. IMPRESSION: 1. No CT evidence of acute intracranial pathology. 2. Incidentally noted of CSF densities area involving left high frontal lobe white matter without monika rounding edema or mass effect. Finding likely represent congenital process, comparison with prior melonie dy can be helpful if available. This can also be further evaluated with MRI of brain without and with contrast. Reviewed by: Cecil Blue MD on 04/23/2020 4:10 PM PST Approved by: Cecil Blue MD on 04/23/2020 4:10 PM PST Station ID: [id number]
--- NOTE | 2020-04-23 16:20 | CT Report ---
PROCEDURE: CERVICAL SPINE WO INDICATIONS: head injury neck pain TECHNIQUE: Noncontrast 3 mm thick sections acquired from the skull base to the T4 level. Sagittal and coronal r eformats were then constructed. For radiation dose reduction, the following was used: automated exp osure control, adjustment of mA and/or kV according to patient size. COMPARISON: None. FINDINGS: Image quality: Excellent. Bones: No fractures or dislocations. Visualized superior ribs are intact. Moderately severe degene rative disc disease at C5-6 with posterior projecting osteophytes producing a moderate degree of spin al stenosis. Soft tissues: Prevertebral soft tissues are normal in thickness. No paravertebral hematomas. No ap ical pneumothoraces. IMPRESSION: No acute trauma found. C5-6 moderately severe degenerative disc disease with moderate spinal stenosis associated with posterior projecting osteophytes, chronic in appearance. Reviewed by: Ifeanyi Macedo MD on 04/23/2020 4:18 PM PST Approved by: Ifeanyi Macedo MD on 04/23/2020 4:18 PM PST Station ID: [id number]
[2020-04-23 16:30] VITALS: BP 110/75
== END 2020-04-23 16:45 | disposition home or self-care (01) ==
LOC: ED 12:59
DX: S06.0X0A Concussion without loss of consciousness, initial encounter (principal); S16.1XXA Strain of muscle, fascia and tendon at neck level, initial encounter; W20.8XXA Other cause of strike by thrown, projected or falling object, initial encounter; Y99.0 Civilian activity done for income or pay
CPT/HCPCS: 70450; 72125; 99284

== ENCOUNTER 2020-06-26 17:37 | Outpatient (CLI) | payer OTHER | END 2020-06-26 17:38 | disposition home or self-care (01) | LOC: COV 17:37 | PROVIDERS: ATTEND Internal Medicine | DX: Z01.812 Encounter for preprocedural laboratory examination (principal); Z20.822 Contact with and (suspected) exposure to COVID-19 ==

== ENCOUNTER 2020-07-25 13:45 | Outpatient (CLI) | payer OTHER | END 2020-07-25 13:46 | disposition home or self-care (01) | LOC: LAB.S 13:45 | PROVIDERS: ATTEND Internal Medicine | DX: K59.00 Constipation, unspecified (principal); R19.7 Diarrhea, unspecified; R14.0 Abdominal distension (gaseous); R10.30 Lower abdominal pain, unspecified | CPT/HCPCS: 36415; 81599; 82784; 82787 ==

== ENCOUNTER 2020-12-16 16:04 | Outpatient (CLI) | payer OTHER | END 2020-12-16 16:05 | disposition EMS.NT | LOC: EMS 16:04 | DX: R42 Dizziness and giddiness (principal); R11.0 Nausea ==

== ENCOUNTER 2020-12-16 17:12 | Emergency (ER) | payer OTHER ==
[2020-12-16 17:53] LABS: BASOPHILS # (AUTO) 0.1 10^3/uL (0.0-0.1); BASOPHILS % (AUTO) 0.8 %; EOSINOPHILS # (AUTO) 0.1 10^3/uL (0.0-0.7); EOSINOPHILS % (AUTO) 1.8 %; HCT - HEMATOCRIT 38.7 % (37.0-47.0); HGB - HEMOGLOBIN 12.9 g/dL (12.0-16.0); LYMPHOCYTES # (AUTO) 1.8 10^3/uL (1.5-3.5); LYMPHOCYTES % (AUTO) 26.7 %; MEAN CORPUSCULAR HEMOGLOBIN 30.8 pg (27.0-31.0); MEAN CORPUSCULAR HGB CONC 33.3 g/dL (32.0-36.0); MEAN CORPUSCULAR VOLUME 92.4 fL (81.0-99.0); MEAN PLATELET VOLUME 10.8 fL (7.9-10.8); MONOCYTES # (AUTO) 0.7 10^3/uL (0.0-1.0); NEUTROPHILS % (AUTO) 60.5 %; PLT - PLATELET COUNT 222 10^3/uL (130-450); RED BLOOD COUNT 4.19 10^6/uL (4.20-5.40); RED CELL DISTRIBUTION WIDTH 12.9 % (12.0-15.0); WHITE BLOOD COUNT 6.6 x10^3/uL (4.8-10.8)
--- NOTE | 2020-12-16 18:02 | XRAY Report ---
PROCEDURE: Chest 1 View X-Ray INDICATIONS: Chest pain TECHNIQUE: One view of the chest was acquired. COMPARISON: 05/17/2019 FINDINGS: Surgical changes and devices: None. Lungs and pleura: No pleural effusions or pneumothorax. Lungs are clear. Mediastinum: Mediastinal contours appear normal. Heart size is normal. Bones and chest wall: No suspicious bony lesions. Mild S-shaped thoracic scoliosis. Overlying soft tissues appear unremarkable. IMPRESSION: 1. Stable chest without acute cardiopulmonary disease. Reviewed by: Tete Osman MD on 12/16/2020 6:01 PM PDT Approved by: Tete Osman MD on 12/16/2020 6:01 PM PDT Station ID: [id number]
[2020-12-16 18:09] LABS: ALBUMIN 4.2 g/dL (3.2-5.5); ALBUMIN/GLOBULIN RATIO 1.5 (1.0-2.2); BILIRUBIN,TOTAL 0.6 mg/dL (0.2-1.0); CALCIUM 9.1 mg/dL (8.5-10.3); CREATININE 0.8 mg/dL (0.4-1.0); POTASSIUM 3.9 mmol/L (3.5-5.0)
--- NOTE | 2020-12-16 18:31 | ED Physician Documentation ---
History of Present Illness - Stated complaint Stated Complaint: LT HEADED, CHEST PX - Chief complaint Chief Complaint: Cardiac - History obtained from History obtained from: Patient - History of Present Illness Timing: Today Pain level max: 3 Pain level now: 3 - Additonal information Additional information: Patient is a 44-year-old female who presents to the emergency department stating that she felt her heart racing today. She states her normal heart rate is around 65, she states her heart rate was up in the 90s earlier today. Nothing made it better or worse. Occasionally had 15 to 20 seconds of shooting pain in the left side of the chest. She states that she has had a pressure in the anterior aspect of her chest since 8 AM this morning. Nothing makes it better or worse. She states similar symptoms when her thyroid medication needed adjusting. No change with movement, breathing. No recent travel or surgeries. No fever. No cough. Review of Systems Constitutional: denies: Fever, Chills GI: denies: Vomiting, Diarrhea : denies: Dysuria, Frequency, Hesitancy, Now EGA Skin: denies: Rash Musculoskeletal: denies: Neck pain, Back pain Neurologic: denies: Headache PD PAST MEDICAL HISTORY - Past Medical History Past Medical History: Yes Endocrine/Autoimmune: HyPOthyroidism - Past Surgical History Past Surgical History: Yes General: Colonoscopy /[employer]: Hysterectomy, Other - Present Medications Home Medications: Ambulatory Orders Medication Instructions Recorded Confirmed Thyroid,Pork [[place] Thyroid] 105 mcg PO DAILY 01/02/15 01/10/15 Cyclobenzaprine [Flexeril] 10 mg PO TID PRN #20 tablet 04/23/20 Hydrocodone/Acetaminophen [[place] 1 - 2 each PO Q6HR PRN #14 tablet 04/23/20 5-325 Tablet] - Allergies Allergies/Adverse Reactions: Allergies Allergy/AdvReac Type Severity Reaction Status Date / Time codeine AdvReac Unknown Verified 12/16/20 17:32 - Social History Does the pt smoke?: No Smoking Status: Never smoker Does the pt drink ETOH?: No Does the pt have substance abuse?: No - Immunizations Immunizations are current?: Yes - POLST Patient has POLST: No PD ED PE NORMAL - Vitals Vital signs reviewed: Yes - General General: Alert and oriented X 3, No acute distress, Well developed/nourished - HEENT HEENT: PERRL, Moist mucous membranes - Neck Neck: Supple, no meningeal sign - Cardiac Cardiac: RRR, No murmur, Strong equal pulses - Respiratory Respiratory: No respiratory distress, Clear bilaterally - Abdomen Abdomen: Soft, Non tender, Non distended - Derm Derm: Warm and dry - Extremities Extremities: No edema, No calf tenderness / cord - Neuro Neuro: Alert and oriented X 3 - Psych Psych: Normal mood, Normal affect Results - Vitals Vitals: Vital Signs - 24 hr 12/16/20 12/16/20 17:18 19:10 Temperature 36.6 C 36.5 C Heart Rate 66 68 Respiratory 15 16 Rate Blood Pressure 117/78 104/74 O2 Saturation 99 99 Oxygen O2 Source Room air - EKG (time done) 1721 Rate: Rate (enter#) (56) Rhythm: NSR [place]: Normal Intervals: Normal NC QRS: Normal Ischemia: Normal ST segments - Labs Labs: Laboratory Tests 12/16/20 12/16/20 12/16/20 17:40 17:40 17:40 WBC 6.6 RBC 4.19 L Hgb 12.9 Hct 38.7 MCV 92.4 MCH 30.8 MCHC 33.3 RDW 12.9 Plt Count 222 MPV 10.8 Neut # (Auto) 4.0 Lymph # (Auto) 1.8 [place] # (Auto) 0.7 Eos # (Auto) 0.1 Baso # (Auto) 0.1 Absolute Nucleated RBC 0.00 Nucleated RBC % 0.0 Sodium 141 Potassium 3.9 Chloride 108 Carbon Dioxide 26 Anion Gap 7.0 BUN 15 Creatinine 0.8 Estimated GFR (MDRD) 78 L Glucose 104 H Calcium 9.1 Total Bilirubin 0.6 AST 15 ALT 15 Alkaline Phosphatase 36 L Troponin I High Sens < 2.3 L Total Protein 7.0 Albumin 4.2 Globulin 2.8 Albumin/Globulin Ratio 1.5 Lipase 57 H TSH Free T4 12/16/20 17:40 WBC RBC Hgb Hct MCV MCH MCHC RDW Plt Count MPV Neut # (Auto) Lymph # (Auto) [place] # (Auto) Eos # (Auto) Baso # (Auto) Absolute Nucleated RBC Nucleated RBC % Sodium Potassium Chloride Carbon Dioxide Anion Gap BUN Creatinine Estimated GFR (MDRD) Glucose Calcium Total Bilirubin AST ALT Alkaline Phosphatase Troponin I High Sens Total Protein Albumin Globulin Albumin/Globulin Ratio Lipase TSH < 0.08 L Free T4 0.91 - Rads (name of study) cxr Radiology: Final report received, EMP read contemporaneously, See rad report (no acute abnormality.) PD MEDICAL DECISION MAKING - ED course Complexity details: reviewed results, re-evaluated patient, considered differential (No ST elevation [place], no aortic dissection, no PE, no tension pneumothorax, no aortic aneurysm), d/w patient ED course: No acute findings on laboratory testing, EKG or chest x-ray. Unclear etiology of her symptoms. Currently asymptomatic in the emergency department. No evidence of PE. No evidence of aortic dissection. We will have her follow-up with her doctor for further care. Patient counseled regarding signs and symptoms for which I believe and urgent re-evaluation would be necessary. Patient with good understanding of and agreement to plan and is comfortable going home at this time This document was made in part using voice recognition software. While efforts are made to proofread this document, sound alike and grammatical errors may occur. Departure - Departure Disposition: 01 Home, Self Care Clinical Impression: Palpitations Chest pain Qualifiers: Chest pain type: unspecified Qualified Code(s): R07.9 - Chest pain, unspecified Condition: Good Instructions: ED Chest Pain Atypical Unkn Cause, ED Palpitations Follow-Up: Yusra Grace ND [Primary Care Provider] - Within 1 week Comments: The cause of your symptoms is unclear today. Your EKG, chest x-ray, blood work did not show any acute abnormalities. Your thyroid testing does not show any acute abnormality as well. Please return if you worsen. Discharge Date/Time: 12/16/20 19:15
[2020-12-16 18:55] LABS: THYROID STIMULATING HORMONE < 0.08 uIU/mL (0.34-5.60)
[2020-12-16 18:57] LABS: FREE T4 (FREE THYROXINE) 0.91 ng/dL (0.58-1.64)
[2020-12-16 19:16] VITALS: BP 104/74
== END 2020-12-16 19:15 | disposition home or self-care (01) ==
LOC: ED 17:12
DX: R00.2 Palpitations (principal); R07.9 Chest pain, unspecified
CPT/HCPCS: 36415; 80053; 83690; 84439; 84443; 84484; 85025; 93005; 99283; 99284

== ENCOUNTER 2021-08-30 20:56 | Emergency (ER) | payer OTHER ==
[2021-08-30] MEDS ORDERED: HYDROmorphone 1 MG/ML CARPUJECT IVP STA (21:11)
[2021-08-30] MEDS ORDERED: ONDANSETRON ODT 4 MG TABLET TL STA (21:11)
[2021-08-30] MEDS ORDERED: IOVERSOL 320 100 ML VIAL IVP ONE ×2 (21:24→23:01)
[2021-08-30 21:29] LABS: BASOPHILS # (AUTO) 0.1 10^3/uL (0.0-0.1); BASOPHILS % (AUTO) 0.8 %; EOSINOPHILS # (AUTO) 0.3 10^3/uL (0.0-0.7); EOSINOPHILS % (AUTO) 3.3 %; HGB - HEMOGLOBIN 13.6 g/dL (12.0-16.0); LYMPHOCYTES # (AUTO) 2.1 10^3/uL (1.5-3.5); LYMPHOCYTES % (AUTO) 27.3 %; MEAN CORPUSCULAR HEMOGLOBIN 30.8 pg (27.0-31.0); MEAN CORPUSCULAR HGB CONC 33.2 g/dL (32.0-36.0); MEAN PLATELET VOLUME 10.9 fL (7.9-10.8); MONOCYTES # (AUTO) 0.7 10^3/uL (0.0-1.0); MONOCYTES % (AUTO) 8.9 %; NEUTROPHILS # (AUTO) 4.5 10^3/uL (1.5-6.6); NEUTROPHILS % (AUTO) 59.4 %; PLT - PLATELET COUNT 204 10^3/uL (130-450); RED BLOOD COUNT 4.41 10^6/uL (4.20-5.40); RED CELL DISTRIBUTION WIDTH 13.2 % (12.0-15.0); WHITE BLOOD COUNT 7.5 x10^3/uL (4.8-10.8)
[2021-08-30 21:36] LABS: ALBUMIN 4.3 g/dL (3.2-5.5); ALBUMIN/GLOBULIN RATIO 1.6 (1.0-2.2); BILIRUBIN,TOTAL 1.3 mg/dL (0.2-1.0); CALCIUM 9.1 mg/dL (8.5-10.3); POTASSIUM 3.8 mmol/L (3.5-5.0)
--- NOTE | 2021-08-30 23:03 | CT Report ---
PROCEDURE: Abdomen/Pelvis W INDICATIONS: diffuse abd pain s/p colonoscopy CONTRAST: IV CONTRAST: Optiray 320 ml: 100 PO CONTRAST: *NO PO CONTRAST TECHNIQUE: After the administration of contrast, 5 mm thick sections acquired from the diaphragms to the sym physis. 5 mm thick coronal and sagittal reformats were acquired. For radiation dose reduction, the following was used: automated exposure control, adjustment of mA and/or kV according to patient size . COMPARISON: None. FINDINGS: Image quality: Excellent. Lung bases:There is mild dependent atelectasis bilaterally. Heart: Heart is normal in size. ABDOMEN: Liver: No mass lesion. Gallbladder:There are a few small dependent calcified gallstones in the gallbladder without associat ed wall thickening or pericholecystic fluid. Biliary ducts: No biliary ductal dilatation. Pancreas: Unremarkable. Spleen: Normal in size. Adrenal Glands: No adrenal nodules. Kidneys and Ureters: No hydronephrosis. Stomach and Bowel: Stomach, small bowel loops, and colon are normal in caliber and wall thickness. T he appendix is normal in appearance. There is moderate distention of the colon with scattered air-flu id levels. Peritoneum: No abnormal intraperitoneal fluid. No free air. Ventral Wall: No hernia. Abdominal Nodes: No retroperitoneal or mesenteric adenopathy by size criteria. Vessels: Aorta and inferior vena cava are normal in size. PELVIS: Pelvic Organs: Unremarkable. Bladder: Unremarkable. Pelvic Nodes: No enlarged lymph nodes. Miscellaneous: No inguinal hernias are seen. Bones: Visualized osseous structures demonstrate no suspicious focal lesions. IMPRESSION: 1. No evidence of pneumoperitoneum or free fluid to suggest perforation. 2. No definite acute intra-abdominal abnormality. Reviewed by: Narendra Oliveira MD on 08/30/2021 11:01 PM PDT Approved by: Narendra Oliveira MD on 08/30/2021 11:01 PM PDT Station ID: [id number]
--- NOTE | 2021-08-30 23:15 | ED Physician Documentation ---
PD HPI ABD PAIN - Stated complaint Stated Complaint: ABD TO CHEST PX (POST SUG) - Chief complaint Chief Complaint: Abd Pain - History obtained from History obtained from: Patient - History of Present Illness Timing - onset: Today (this evening) Timing - details: Gradual onset Pain level now: 6 Quality: Sharp Location: Other (across lower abdomen) Improved by: Laying still Worsened by: Moving, Palpation Associated symptoms: No: Fever, Nausea, Vomiting Similar symptoms before: Has not had sx before - Additional information Additional information: patient underwent colonoscopy today at 14:30. This evening, she developed gradual onset but steadily increasing sharp pain across her lower abdomen. The pain is worse with movement, palpation. She has had several previous colonoscopies but has not had this discomfort after any previous scopes. Review of Systems Constitutional: reports: Reviewed and negative Cardiac: reports: Reviewed and negative Respiratory: reports: Reviewed and negative GI: reports: Abdominal Pain. 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, Other - Present Medications Home Medications: Ambulatory Orders Medication Instructions Recorded Confirmed Thyroid,Pork [[place] Thyroid] 105 mcg PO DAILY 01/02/15 01/10/15 Levothyroxine [Synthroid] 75 mcg PO QDAC 08/30/21 08/30/21 traMADol [Ultram] 50 - 100 mg PO Q6H PRN #20 tablet 08/30/21 - Allergies Allergies/Adverse Reactions: Allergies Allergy/AdvReac Type Severity Reaction Status Date / Time codeine AdvReac Unknown Verified 08/30/21 21:09 - Social History Does the pt smoke?: No Smoking Status: Never smoker Does the pt drink ETOH?: No Does the pt have substance abuse?: No - Immunizations Immunizations are current?: Yes - POLST Patient has POLST: No PD ED PE NORMAL - Vitals Vital signs reviewed: Yes - General General: Alert and oriented X 3, No acute distress, Well developed/nourished - Cardiac Cardiac: RRR, No murmur - Respiratory Respiratory: No respiratory distress, Clear bilaterally - Abdomen Abdomen: Soft, Non distended, Other (TTP across lower abdomen without rebound or guarding) Results - Vitals Vitals: Oxygen O2 Source Room air - Labs Labs: Laboratory Tests 08/30/21 08/30/21 08/30/21 21:16 21:16 23:15 WBC 7.5 RBC 4.41 Hgb 13.6 Hct 41.0 MCV 93.0 MCH 30.8 MCHC 33.2 RDW 13.2 Plt Count 204 MPV 10.9 H Neut # (Auto) 4.5 Lymph # (Auto) 2.1 [place] # (Auto) 0.7 Eos # (Auto) 0.3 Baso # (Auto) 0.1 Absolute Nucleated RBC 0.00 Nucleated RBC % 0.0 Sodium 138 Potassium 3.8 Chloride 105 Carbon Dioxide 23 Anion Gap 10.0 BUN 9 Creatinine 1.0 Estimated GFR (MDRD) 60 L Glucose 85 Calcium 9.1 Total Bilirubin 1.3 H AST 16 ALT 16 Alkaline Phosphatase 32 L Total Protein 7.0 Albumin 4.3 Globulin 2.7 Albumin/Globulin Ratio 1.6 Lipase 51 Urine Color YELLOW Urine Clarity CLEAR Urine pH 6.0 Ur Specific [place] <=1.005 Urine Protein NEGATIVE Urine Glucose (UA) NEGATIVE Urine Ketones 15 H Urine Occult Blood TRACE-INTA Urine Nitrite NEGATIVE Urine Bilirubin NEGATIVE Urine Urobilinogen 0.2 (NORMAL) Ur Leukocyte Esterase NEGATIVE Ur Microscopic Review NOT INDICATED Urine Culture Comments NOT INDICATED Urine HCG, Qual 08/30/21 23:15 WBC RBC Hgb Hct MCV MCH MCHC RDW Plt Count MPV Neut # (Auto) Lymph # (Auto) [place] # (Auto) Eos # (Auto) Baso # (Auto) Absolute Nucleated RBC Nucleated RBC % Sodium Potassium Chloride Carbon Dioxide Anion Gap BUN Creatinine Estimated GFR (MDRD) Glucose Calcium Total Bilirubin AST ALT Alkaline Phosphatase Total Protein Albumin Globulin Albumin/Globulin Ratio Lipase Urine Color Urine Clarity Urine pH Ur Specific [place] Urine Protein Urine Glucose (UA) Urine Ketones Urine Occult Blood Urine Nitrite Urine Bilirubin Urine Urobilinogen Ur Leukocyte Esterase Ur Microscopic Review Urine Culture Comments Urine HCG, Qual NEGATIVE - Rads (name of study) CT A/P with IV contrast Radiology: Prelim report reviewed, See rad report PD MEDICAL DECISION MAKING - ED course Complexity details: reviewed results, re-evaluated patient, considered differential, d/w patient ED course: c/o lower abdominal pain that developed a few hours after having a colonoscopy performed earlier today. She has no concerning findings on lab tests (including normal CBC), UA, or CT A/P. The CT demonstrates gallstones but the location of her pain c/o is not consistent with biliary colic and thus this is an incidental finding. There are no findings on CT to suggest perforation or other acute/emergent process. The etiology of her discomfort is not apparent at this time. She is given IV dilaudid and zofran early in her stay (zofran was given to minimize potential nausea from the dilaudid). Results of tests d/w patient. I explained that the cause of her pain is not apparent, but that further emergent testing or observation is not indicated at this time. She is encouraged to have a low thresh hold for returning to ED for any worsening symptoms or new/concerning signs/symptoms (such as fever, blood in stool), and to contact her admissions nurse when the office is next open to discuss options for reevaluation. In discussing analgesics, she says that she prefers to not be prescribed strong opiates such as hydrocodone or oxycodone due to unpleasant side effects when she has had these in the past. She says she has done well with tramadol and thus this is e-prescribed for her and a dose given prior to discharge. I am prescribing a short course of short-acting opioid pain medication for this patient. I have reviewed the patients [employer]CHO[employer] DIRECTOR and no concerning findings were noted. I have discussed that the opioids are for short term therapy only, and will not be refilled from the ED Departure - Departure Disposition: 01 Home, Self Care Clinical Impression: Abdominal pain Qualifiers: Abdominal location: lower abdomen, unspecified Qualified Code(s): R10.30 - Lower abdominal pain, unspecified Condition: Good Instructions: ED Abdominal Pain Female Non-Specific Abdominal Pain Prescriptions: traMADol [Ultram] 50 - 100 mg PO Q6H PRN #20 tablet PRN Reason: Pain Comments: Your test results have no concerning findings. Incidental note is made of a few small gallstones, but this is not where your pain is. The CT scan does not show any evidence of perforation , nor any other findings that would explain your abdominal pains. A prescription for tramadol has been electronically submitted to [facility] in [place]. Follow up with your surgeon; contact the group Thursday unless your symptoms have completely resolved (without the use of the prescribed medication). I am prescribing a short course of narcotic pain medication for you. These are potentially dangerous and addictive medications that should be used carefully. These medications may constipate you. Take an [id number] stool softener (docusate) twice daily with plenty of water while taking these medications. If you go 24 hours without a bowel movement, take [id number] miralax, per package instructions. Do not drink or drive while taking these medications. If you received narcotic or sedating medications while in the emergency department, do not drive for 24 hours. Store this medication in a safe, secure place and out of reach of children. It is a violation of federal law to give or sell this medication to another person or to use in a manner other than prescribed. The ED will not refill narcotic prescriptions, including prescriptions lost or stolen. To dispose of unwanted medications: 1. [facility] at [address] in [place] has a medication drop box. They accept prescription medications (in pill form) Thursday through Thursday 9:00 a.m. to 5:00 p.m. 2. The [facility] [employer] accepts prescription medications (in pill form only) for disposal year round. Call for more information. 3. Contact the [facility] for the next [facility] sponsored prescription drug collection event. , [phone], or [phone]; Discharge Date/Time: 08/30/21 23:58
[2021-08-30 23:24] LABS: BILIRUBIN,URINE NEGATIVE (NEGATIVE); GLUCOSE, URINE (UA) NEGATIVE (NEGATIVE); KETONES,URINE (UA) 15 mg/dL (NEGATIVE); LEUKOCYTE ESTERASE, URINE NEGATIVE (NEGATIVE); NITRITE,URINE NEGATIVE (NEGATIVE); OCCULT BLOOD,URINE TRACE-INTA (NEGATIVE); PROTEIN,URINE NEGATIVE (NEGATIVE); UROBILINOGEN,URINE 0.2 (NORMAL) E.U./dL (NORMAL)
[2021-08-30 23:26] LABS: CLARITY,URINE CLEAR (CLEAR); HCG UR QUAL NEGATIVE
[2021-08-30] MEDS ORDERED: traMADol 50 MG TABLET PO STA (23:39)
[2021-08-31 00:01] VITALS: BP 122/84
== END 2021-08-30 23:58 | disposition home or self-care (01) ==
LOC: ED 20:56
DX: K80.50 Calculus of bile duct without cholangitis or cholecystitis without obstruction (principal)
CPT/HCPCS: 36415; 74177; 80053; 81003; 81025; 83690; 85025; 96374; 99282; 99284; A9270; J1170; Q0162; Q9967; 81001; 87086

== ENCOUNTER 2022-01-02 09:26 | Outpatient (CLI) | payer SELFPAY ==
--- NOTE | 2022-01-03 09:03 | Mammography Report ---
BILATERAL DIGITAL SCREENING MAMMOGRAM 3D/2D WITH EXAGGERATED CC: 01/02/2022 CLINICAL: Routine screening. Comparison is made to exam dated: 11/09/2018 mammogram - [facility]. Both breasts are heterogeneously dense, which may obscure small masses (category c / 51-75% glandula r tissue). No significant masses, calcifications, or other findings are seen in either breast. There has been no significant interval change. IMPRESSION: NEGATIVE There is no mammographic evidence of malignancy. A 1 year screening mammogram is recommended. Based on the Tyrer Cuzick model (a risk assessment model) the patients lifetime risk is 9.9% and her 10 year risk is 2.0%. According to the ACR, ACS, and NCCN guidelines, an annual breast MRI exam karri g with mammogram is recommended if the patients lifetime risk is 20% or greater. This exam was interpreted at Station ID: [id number]. NOTE: For mammograms, a report in lay terms will be sent to the patient. Approximately 15% of breast malignancies will not be visualized mammographically. In the management of a palpable breast mass, a negative mammogram must not discourage biopsy of a clinically suspicious lesion. Electronically Signed By: Jose cooper/penrad:01/02/2022 13:32:05 ACR BI-RADS Category 1: Negative [id number] PARENCHYMAL PATTERN: (D) - The breast(s) demonstrate(s) heterogeneously dense fibroglandular kady maciel. BI-RADS CATEGORY: (1) - 1 RECOMMENDATION: (ANNUAL) - Recommend routine annual screening mammography. [id number] 1 year screening LATERALITY: (B)
== END 2022-01-02 09:27 | disposition home or self-care (01) ==
LOC: DI.S 09:26
DX: Z12.31 Encounter for screening mammogram for malignant neoplasm of breast (principal)